=== PATIENT | female | born 1930 | race Caucasian/White ===

== ENCOUNTER 2018-08-15 20:14 | Emergency (ER) | payer MEDICARE ==
[~2018-08-15] VITALS: Ht 154.9 cm; Wt 65.5 kg
[~2018-08-15 20:14] MED LIST: AMLO10TA8 PO; ASPI-515 PO; AZIT500T5 PO; CEFD300C37 PO; DOXA1TAB2 PO; LACT1CAP35 PO; LEVO25TA2 PO; LORA-446 PO; LOSA50TA2 PO; SPIR25TA5 PO
--- NOTE | 2018-08-15 20:26 | NUR ---
2022 STILL IN TRIAGE COULDNT DO XRAY
[2018-08-15 21:32] LABS: ALBUMIN 3.9 g/dL (3.4-5.0); ANION GAP 8 mmol/L (5-15); CALCIUM 9.1 mg/dL (8.5-10.1); CHLORIDE 103 mmol/L (98-107); CREATININE 1.01 mg/dL (0.55-1.02)
[2018-08-15 21:36] LABS: TROPONIN I < 0.015 ng/mL (0.000-0.045)
[2018-08-15 21:42] VITALS: BP 163/86
--- NOTE | 2018-08-15 21:42 | NUR ---
ASSUMED CARE OF PT AT THIS TIME. THIS IS AN 87 YO FEMALE WHO PRESENTS TO THE ER C/O DIZZINESS, NAUSEA AND "JUST FEELING OFF" X 1-2 MONTHS. PT DENIES PAIN OF ANY KIND. PT AO X 4. ANSWERING ALL QUESITONS APPROPRIATELY. PT ABLE TO HILARIO W/O DIFFIUCLTY. 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 PERRLA. PT ON CONT BP, CARDIAC AND O2 MONITORS. 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 CALL LIGHT WITHIN REACH. WILL CONT TO MONITOR PT.
[2018-08-15 21:43] LABS: BASOPHILS # (AUTO) 0.02 x10^3/uL (0-0.1); BASOPHILS % (AUTO) 0 % (0-1); EOSINOPHILS # (AUTO) 0.09 x10^3/uL (0-0.4); EOSINOPHILS % (AUTO) 2 % (1-7); LYMPHOCYTES # (AUTO) 1.74 x10^3/uL (1-3.4); LYMPHOCYTES % (AUTO) 31 % (22-44); MD SCAN; MEAN CORPUSCULAR HEMOGLOBIN 31.8 pg (27.0-34.8); MEAN CORPUSCULAR VOLUME 93.5 fL (80-100); MEAN PLATELET VOLUME 9.2 fL (7.4-10.4); MONOCYTES # (AUTO) 0.52 x10^3/uL (0.2-0.8); MONOCYTES % (AUTO) 9 % (2-9); NEUTROPHILS # (AUTO) 3.26 x10^3/uL (1.8-6.8); NEUTROPHILS % (AUTO) 58 % (42-75); PLATELET COUNT 223 x10^3/uL (130-400); RED BLOOD COUNT 4.29 x10^6/uL (3.82-5.3); RED CELL DISTRIBUTION WIDTH 14.6 % (9.6-15.2)
--- NOTE | 2018-08-15 21:57 | NUR ---
REPORT TO SHAMEKA CAZARES WHO ASSUMED CARE OF PT. PT PROVIDED WITH WATER WITH OKAY BY [facility]. PT AWARE WE NEED URINE SAMPLE.
--- NOTE | 2018-08-15 22:05 | NUR ---
ASSUMED CARE OF PT. PT RESTING IN BED. ENCOURAGED FOR UA AT THIS TIME.
--- NOTE | 2018-08-15 22:57 | NUR ---
PT UNABLE TO PROVIDE UA. PT GIVEN HEATER FOR COMFORT.
--- NOTE | 2018-08-15 23:18 | NUR ---
Patient/Caregiver given discharge instructions and they have confirmed that they understand the instructions. Patient ambulatory with steady gait.
== END 2018-08-15 23:49 | disposition home or self-care (01) ==
LOC: ED 22:19
DX: R42 Dizziness and giddiness (principal); I10 Essential (primary) hypertension
CPT/HCPCS: 36415; 71046; 80048; 82040; 84484; 85025; 93005; 99284

== ENCOUNTER 2019-09-13 19:10 | Observation (INO) | payer MEDICARE ==
[~2019-09-13] VITALS: Ht 154.9 cm; Wt 66.1 kg
[~2019-09-13 19:10] MED LIST changes: +AZIT500T10 PO; -AZIT500T5 PO; +FURO20TA3 PO; +LEVO50TA PO; +NIAC-17 PO; +OMEP-110 PO; +POTA10CA PO; +SIMV10TA PO
[2019-09-13] MEDS ORDERED: PANTOPRAZOLE 40 MG IV IVPush ONE (20:00)
[2019-09-13] MEDS ORDERED: SODIUM CHLORIDE FLUSH 10ML SYR IVF ONE (20:00)
[2019-09-13] MEDS ORDERED: SODIUM CHLORIDE 0.9% 1,000ML IVBOLUS ONE (20:00)
[2019-09-13] MEDS ORDERED: PANTOPRAZOLE 40 MG IV ONE (20:08)
--- NOTE | 2019-09-13 20:19 | NUR ---
Patient BIB [facility] c/o dark rectal bleeding x3 days; +diarrhea; denies N/V; general malaise, weakness. Patient denies abd pain. Patient is in NAD. Respirations even and unlabored.
[2019-09-13 20:28] LABS: INTERNATIONAL NORMALIZED RATIO 1.03 (0.93-1.1); PROTHROMBIN TIME 10.9 Seconds (9.6-11.5)
[2019-09-13 20:29] LABS: BASOPHILS # (AUTO) 0.02 x10^3/uL (0-0.1); BASOPHILS % (AUTO) 0 % (0-1); EOSINOPHILS % (AUTO) 2 % (1-7); LYMPHOCYTES # (AUTO) 1.67 x10^3/uL (1-3.4); LYMPHOCYTES % (AUTO) 27 % (22-44); MD NO; MEAN CORPUSCULAR HEMOGLOBIN 31.5 pg (27.0-34.8); MEAN CORPUSCULAR HGB CONC 33.2 g/dL (32.4-35.8); MEAN PLATELET VOLUME 8.7 fL (7.4-10.4); MONOCYTES # (AUTO) 0.77 x10^3/uL (0.2-0.8); MONOCYTES % (AUTO) 13 % (2-9); NEUTROPHILS # (AUTO) 3.56 x10^3/uL (1.8-6.8); NEUTROPHILS % (AUTO) 58 % (42-75); PLATELET COUNT 235 x10^3/uL (130-400); RED BLOOD COUNT 3.98 x10^6/uL (3.82-5.3); RED CELL DISTRIBUTION WIDTH 14.1 % (9.6-15.2)
[2019-09-13 20:30] LABS: ALANINE AMINOTRANSFERASE 23 U/L (12-78); ALBUMIN 3.3 g/dL (3.4-5.0); ANION GAP 4 mmol/L (5-15); CALCIUM 8.8 mg/dL (8.5-10.1); CHLORIDE 103 mmol/L (98-107); CREATININE 1.05 mg/dL (0.55-1.02)
[2019-09-13 20:32] LABS: ALKALINE PHOSPHATASE 49 U/L (45-117); BILIRUBIN,TOTAL 0.2 mg/dL (0.2-1.0); TOTAL PROTEIN 6.5 g/dL (6.4-8.2)
--- NOTE | 2019-09-13 21:54 | NUR ---
Report given to SHAMEKA Munguia. Patient to be transferred to room 377.
[2019-09-13 22:28] VITALS: BP 120/75
[2019-09-14 01:16] VITALS: BP 113/66
[2019-09-14] MEDS: LEVOTHYROXINE 50 MCG TABLET PO SCH (06:23)
[2019-09-14] MEDS ORDERED: PANTOPRAZOLE 40 MG IV IVPush SCH (07:30)
[2019-09-14 08:11] VITALS: BP 114/67
[2019-09-14 08:42] LABS: BASOPHILS # (AUTO) 0.02 x10^3/uL (0-0.1); BASOPHILS % (AUTO) 0 % (0-1); EOSINOPHILS # (AUTO) 0.17 x10^3/uL (0-0.4); EOSINOPHILS % (AUTO) 3 % (1-7); LYMPHOCYTES # (AUTO) 1.84 x10^3/uL (1-3.4); LYMPHOCYTES % (AUTO) 35 % (22-44); MD NO; MEAN CORPUSCULAR HEMOGLOBIN 31.2 pg (27.0-34.8); MEAN CORPUSCULAR HGB CONC 32.7 g/dL (32.4-35.8); MEAN CORPUSCULAR VOLUME 95.6 fL (80-100); MEAN PLATELET VOLUME 8.5 fL (7.4-10.4); MONOCYTES # (AUTO) 0.61 x10^3/uL (0.2-0.8); MONOCYTES % (AUTO) 12 % (2-9); NEUTROPHILS # (AUTO) 2.64 x10^3/uL (1.8-6.8); NEUTROPHILS % (AUTO) 50 % (42-75); PLATELET COUNT 216 x10^3/uL (130-400); RED BLOOD COUNT 3.91 x10^6/uL (3.82-5.3); RED CELL DISTRIBUTION WIDTH 13.6 % (9.6-15.2)
[2019-09-14] MEDS: NIACIN 500 MG TABLET.ER PO SCH (08:42)
[2019-09-14] MEDS: SPIRONOLACTONE 25 MG TABLET PO SCH (08:42)
[2019-09-14] MEDS: LOSARTAN 50MG TABLET PO SCH (08:42)
[2019-09-14 08:51] LABS: ANION GAP 6 mmol/L (5-15); CALCIUM 8.5 mg/dL (8.5-10.1); CHLORIDE 106 mmol/L (98-107); CREATININE 0.88 mg/dL (0.55-1.02)
[2019-09-14] MEDS ORDERED: CHLORHEXIDINE 15 ML UDC MM STA (14:15)
[2019-09-14] MEDS ORDERED: FENTANYL PF 100 MCG/2ML ONE (14:48)
[2019-09-14] MEDS ORDERED: PROPOFOL 10 MG/ML, 20ML ONE (15:00)
[2019-09-14] MEDS ORDERED: ROCURONIUM 10MG/ML,5ML ONE (15:00)
[2019-09-14] MEDS ORDERED: PROMETHAZINE 25 MG SUPP PR PRN (15:00)
[2019-09-14] MEDS ORDERED: CEFAZOLIN 1,000 MG ONE (15:00)
[2019-09-14] MEDS ORDERED: NEOSTIGMINE 1 MG/ML, 10ML ONE (15:00)
[2019-09-14] MEDS ORDERED: OXYcodone 5 MG/5 ML ORAL.SOL UDC PO PRN (15:00)
[2019-09-14] MEDS ORDERED: DEXAMETHASONE 4 MG/ML, 1ML ONE (15:00)
[2019-09-14] MEDS ORDERED: ACETAMINOPHEN 325 MG TABLET PO PRN (15:00)
[2019-09-14] MEDS ORDERED: SUCCINYLCHOLINE 20 MG/ML, 10ML ONE (15:00)
[2019-09-14] MEDS ORDERED: GLYCOPYRROLATE 0.2MG/1ML, 5ML ONE (15:00)
[2019-09-14] MEDS ORDERED: FENTANYL PF 100 MCG/2ML IV PRN (15:00)
[2019-09-14] MEDS ORDERED: ONDANSETRON ODT 8 MG PO PRN (15:00)
[2019-09-14] MEDS ORDERED: PROMETHAZINE 25 MG/ML, 1ML IV PRN (15:00)
[2019-09-14] MEDS ORDERED: ONDANSETRON 2MG/ML, 2ML IV PRN (15:00)
[2019-09-14] MEDS ORDERED: ONDANSETRON 2MG/ML, 2ML ONE (15:00)
[2019-09-14] MEDS ORDERED: hydrALAzine 20 MG/ML, 1ML IV PRN (16:00)
[2019-09-14] MEDS ORDERED: [UNRECOGNIZED DRUG - REMARK] MC PRN (16:30)
[2019-09-14 19:07] VITALS: BP 124/66
[2019-09-14 23:27] LABS: CLOSTRIDIUM DIFFICILE ANTIGEN NEGATIVE; CLOSTRIDIUM DIFFICILE TOXIN NEGATIVE (Negative)
[2019-09-15 02:12] VITALS: BP 132/64
[2019-09-15 06:03] LABS: BASOPHILS # (AUTO) 0.02 x10^3/uL (0-0.1); BASOPHILS % (AUTO) 0 % (0-1); EOSINOPHILS # (AUTO) 0.18 x10^3/uL (0-0.4); EOSINOPHILS % (AUTO) 3 % (1-7); LYMPHOCYTES % (AUTO) 34 % (22-44); MD NO; MEAN CORPUSCULAR HEMOGLOBIN 31.3 pg (27.0-34.8); MEAN CORPUSCULAR HGB CONC 33.1 g/dL (32.4-35.8); MEAN CORPUSCULAR VOLUME 94.7 fL (80-100); MEAN PLATELET VOLUME 8.6 fL (7.4-10.4); MONOCYTES # (AUTO) 0.69 x10^3/uL (0.2-0.8); MONOCYTES % (AUTO) 12 % (2-9); NEUTROPHILS # (AUTO) 2.87 x10^3/uL (1.8-6.8); NEUTROPHILS % (AUTO) 51 % (42-75); PLATELET COUNT 224 x10^3/uL (130-400); RED BLOOD COUNT 3.77 x10^6/uL (3.82-5.3); RED CELL DISTRIBUTION WIDTH 14.1 % (9.6-15.2)
[2019-09-15 06:09] LABS: ALBUMIN 2.9 g/dL (3.4-5.0); ANION GAP 5 mmol/L (5-15); CALCIUM 8.6 mg/dL (8.5-10.1); CHLORIDE 108 mmol/L (98-107)
[2019-09-15] MEDS: LEVOTHYROXINE 50 MCG TABLET PO SCH (06:09)
[2019-09-15 06:14] LABS: ALANINE AMINOTRANSFERASE 19 U/L (12-78); ALKALINE PHOSPHATASE 42 U/L (45-117); BILIRUBIN,TOTAL 0.4 mg/dL (0.2-1.0); CREATININE 0.83 mg/dL (0.55-1.02); TOTAL PROTEIN 5.9 g/dL (6.4-8.2)
[2019-09-15] MEDS ORDERED: OMEPRAZOLE 20 MG CAPSULE.DR PO SCH (07:30)
[2019-09-15 08:28] VITALS: BP 143/75
[2019-09-15] MEDS: SPIRONOLACTONE 25 MG TABLET PO SCH (09:31)
[2019-09-15] MEDS: LOSARTAN 50MG TABLET PO SCH (09:31)
[2019-09-15] MEDS: NIACIN 500 MG TABLET.ER PO SCH (09:32)
[2019-09-15] MEDS ORDERED: OMEP-110 PO (10:45)
[2019-09-15 12:30] VITALS: BP 129/71
== END 2019-09-15 13:09 | disposition home or self-care (01) ==
LOC: ED 19:56 → EDIP 20:36 → INTOOBSV 20:36 → 3N 21:37
PROVIDERS: ADMIT Family Medicine; ATTEND Family Medicine
DX: K92.1 Melena (principal); K27.4 Chronic or unspecified peptic ulcer, site unspecified, with hemorrhage; I10 Essential (primary) hypertension; E03.9 Hypothyroidism, unspecified; E78.5 Hyperlipidemia, unspecified; G89.29 Other chronic pain; D64.9 Anemia, unspecified; Z79.82 Long term (current) use of aspirin; Z86.73 Personal history of transient ischemic attack (TIA), and cerebral infarction without residual deficits
CPT/HCPCS: 36415; 43239; 80048; 80053; 83605; 85025; 85610; 85730; 87324; 88305; 93005; 96374; 96376; 99285; C9113; G0378; J0330; J0690; J1100; J2405; J2704; J2710; J3010; J7030

== ENCOUNTER 2019-12-23 18:14 | Inpatient (IN) | payer MEDICARE ==
[~2019-12-23] VITALS: Ht 157.5 cm; Wt 89.3 kg
[2019-12-23] MEDS ORDERED: SODIUM CHLORIDE 0.9% 1,000 ML IV ONE (18:20)
[2019-12-23] MEDS ORDERED: PLEASE ENTER HEIGHT AND WEIGHT MC SCH ×2 (18:30→19:00)
[2019-12-23] MEDS ORDERED: ASPIRIN 81 MG TABLET CHEW PO ONE (18:30)
[2019-12-23] MEDS ORDERED: SODIUM CHLORIDE FLUSH 10ML SYR IVF ONE (18:30)
--- NOTE | 2019-12-23 18:43 | NUR ---
upon returning from restroom pt hr to be found in the 200" pt directed to bear down and pt was able to vagal down into a sinus rhythm
[2019-12-23 18:49] LABS: ALANINE AMINOTRANSFERASE 30 U/L (12-78); ALBUMIN 3.6 g/dL (3.4-5.0); ANION GAP 8 mmol/L (5-15); CALCIUM 8.4 mg/dL (8.5-10.1); CHLORIDE 102 mmol/L (98-107); CREATININE 0.98 mg/dL (0.55-1.02)
[2019-12-23 18:52] LABS: BASOPHILS # (AUTO) 0.02 x10^3/uL (0-0.1); BASOPHILS % (AUTO) 0 % (0-1); EOSINOPHILS # (AUTO) 0.08 x10^3/uL (0-0.4); EOSINOPHILS % (AUTO) 1 % (1-7); LYMPHOCYTES # (AUTO) 1.93 x10^3/uL (1-3.4); LYMPHOCYTES % (AUTO) 31 % (22-44); MD NO; MEAN CORPUSCULAR HEMOGLOBIN 30.6 pg (27.0-34.8); MEAN CORPUSCULAR HGB CONC 32.1 g/dL (32.4-35.8); MEAN CORPUSCULAR VOLUME 95.3 fL (80-100); MEAN PLATELET VOLUME 8.2 fL (7.4-10.4); MONOCYTES % (AUTO) 11 % (2-9); NEUTROPHILS # (AUTO) 3.56 x10^3/uL (1.8-6.8); NEUTROPHILS % (AUTO) 57 % (42-75); PLATELET COUNT 244 x10^3/uL (130-400); RED BLOOD COUNT 4.46 x10^6/uL (3.82-5.3); RED CELL DISTRIBUTION WIDTH 14.4 % (9.6-15.2)
[2019-12-23 18:54] LABS: ALKALINE PHOSPHATASE 52 U/L (45-117); BILIRUBIN,TOTAL 0.3 mg/dL (0.2-1.0); T4 (THYROXINE) 9.1 mcg/dL (4.8-13.9); TOTAL PROTEIN 6.8 g/dL (6.4-8.2); TROPONIN I < 0.015 ng/mL (0.000-0.045)
[2019-12-23 19:00] LABS: MICROSCOPIC AUTO
[2019-12-23] MEDS ORDERED: ASPIRIN 81 MG TABLET CHEW ONE (19:02)
[2019-12-23] MEDS ORDERED: METOPROLOL 1 MG/ML, 5ML ONE (19:14)
--- NOTE | 2019-12-23 19:17 | NUR ---
monitor check to room. pt hr 170. pt placed on crash cart andf made aware. verbal order recieved by dr carballo for 5 mg of metoprolol. medication given at 1915
--- NOTE | 2019-12-23 19:22 | NUR ---
vagal maneuvers unsuccessful this time.
--- NOTE | 2019-12-23 19:29 | NUR ---
hr 142 at this time bp 93/52. ns set to open at this time. [facility].
[2019-12-23] MEDS ORDERED: METOPROLOL 1 MG/ML, 5ML IVPush ONE ×2 (19:30)
--- NOTE | 2019-12-23 19:31 | NUR ---
at this time pt states cp has subsided.
--- NOTE | 2019-12-23 19:37 | NUR ---
called ct. 5 to 10 minutes out.
[2019-12-23] MEDS ORDERED: PROPOFOL 10 MG/ML, 20ML ONE (20:34)
--- NOTE | 2019-12-23 20:41 | NUR ---
see sedation packet for vitals
--- NOTE | 2019-12-23 21:01 | NUR ---
summary of events. sedation began total of 70 mg of propofol given and cardioversion occured. pt returned to sinus rhythm. 2nd liter of ns initiated for hypotension. pt became apneic and need bvm ventolations for estimated 2 minutes. roughly 5 minutes post cardioversion pt returned to svt md made aware. md back in room 50 mg of propofol given and 2nd cardioversion occured. pt returned to sinus rhythm and remains hypotensive. pt placed in trendelenberg. pt remains hypotensive.
--- NOTE | 2019-12-23 21:09 | NUR ---
3rd liter ns initiated for hypotension
--- NOTE | 2019-12-23 21:50 | NUR ---
PT IS AXOX4 AT THSI TIME. VSS. DR CALVERT AT BEDSIDE. AT THSI TIME DR CALVERT STATES PT IS APPROPRIATE FOR TELE
--- NOTE | 2019-12-23 22:08 | NUR ---
70 MG PROPOFOL WASTED WITH NIRMALA MYLES
[2019-12-23] MEDS ORDERED: FUROSEMIDE 20 MG/2 ML IV ONE (22:30)
[2019-12-23] MEDS ORDERED: PROMETHAZINE 25 MG/ML, 1ML IM PRN (22:30)
[2019-12-23] MEDS ORDERED: LABETALOL 5MG/ML, 20ML IVPush PRN (22:30)
[2019-12-23] MEDS ORDERED: ACETAMINOPHEN 325 MG TABLET PO PRN (22:30)
[2019-12-23] MEDS ORDERED: morphine SULFATE 10 MG/ML, 1ML IVPush PRN (22:30)
[2019-12-23] MEDS ORDERED: ASPI-496 PO (22:39)
[2019-12-23 22:45] VITALS: BP 95/57
[2019-12-23] MEDS ORDERED: CALCIUM GLUCONATE 4.6 MEQ in SODIUM CHLORIDE 0.9% 50 ML IV ONE (23:00)
[2019-12-23] MEDS ORDERED: OMNIPAQUE 350 MG/ML, 100ML BOTTLE ONE (23:40)
[2019-12-24 00:18] VITALS: BP 120/69
[2019-12-24 05:03] LABS: BASOPHILS # (AUTO) 0.03 x10^3/uL (0-0.1); BASOPHILS % (AUTO) 1 % (0-1); EOSINOPHILS # (AUTO) 0.15 x10^3/uL (0-0.4); EOSINOPHILS % (AUTO) 3 % (1-7); LYMPHOCYTES # (AUTO) 2.38 x10^3/uL (1-3.4); LYMPHOCYTES % (AUTO) 41 % (22-44); MD NO; MEAN CORPUSCULAR HEMOGLOBIN 30.6 pg (27.0-34.8); MEAN CORPUSCULAR HGB CONC 32.4 g/dL (32.4-35.8); MEAN CORPUSCULAR VOLUME 94.4 fL (80-100); MEAN PLATELET VOLUME 8.6 fL (7.4-10.4); MONOCYTES # (AUTO) 0.68 x10^3/uL (0.2-0.8); MONOCYTES % (AUTO) 12 % (2-9); NEUTROPHILS # (AUTO) 2.61 x10^3/uL (1.8-6.8); NEUTROPHILS % (AUTO) 45 % (42-75); PLATELET COUNT 211 x10^3/uL (130-400); RED CELL DISTRIBUTION WIDTH 14.7 % (9.6-15.2)
[2019-12-24 05:07] LABS: ANION GAP 4 mmol/L (5-15); CALCIUM 8.4 mg/dL (8.5-10.1); CHLORIDE 107 mmol/L (98-107); CREATININE 0.78 mg/dL (0.55-1.02)
[2019-12-24] MEDS ORDERED: LEVOTHYROXINE 50 MCG TABLET PO SCH (06:00)
[2019-12-24] MEDS ORDERED: ASPIRIN 325 MG TABLET EC PO SCH (06:00)
[2019-12-24] MEDS: OMEPRAZOLE 20 MG CAPSULE.DR PO SCH ×2 (06:36→16:30)
[2019-12-24 07:10] VITALS: BP 139/75
[2019-12-24] MEDS ORDERED: LORazepam 1MG TABLET PO SCH (09:00)
[2019-12-24] MEDS ORDERED: SPIRONOLACTONE 25 MG TABLET PO SCH (09:00)
[2019-12-24] MEDS ORDERED: DILTIAZEM 120 MG CAP.ER.24H PO SCH (09:00)
[2019-12-24] MEDS ORDERED: NIACIN 500 MG TABLET.ER PO SCH (09:00)
[2019-12-24 09:09] LABS: TROPONIN I 0.377 ng/mL (0.000-0.045)
[2019-12-24] MEDS ORDERED: NITROGLYCERIN 0.4 MG/SPRAY SL PRN (10:30)
[2019-12-24] MEDS ORDERED: NITROGLYCERIN 0.4 MG BOTTLE (25 TABS) SL PRN (10:30)
[2019-12-24 10:50] LABS: TROPONIN I 0.295 ng/mL (0.000-0.045)
[2019-12-24 12:10] VITALS: BP 105/61
[2019-12-24] MEDS ORDERED: DILT120C48 PO (15:52)
== END 2019-12-24 17:35 | disposition home health service (06) | DRG 309 ==
LOC: ED 20:57 → EDIP 22:24 → 5SO 22:37
PROVIDERS: ADMIT Family Medicine; ATTEND Family Medicine
PROC: 5A2204Z Restoration of Cardiac Rhythm, Single (ICD-10-PCS; principal; 2019-12-23)
DX: I47.1 Supraventricular tachycardia (principal); E87.1 Hypo-osmolality and hyponatremia; I50.32 Chronic diastolic (congestive) heart failure; E03.9 Hypothyroidism, unspecified; E78.5 Hyperlipidemia, unspecified; E83.51 Hypocalcemia; E86.0 Dehydration; F32.9 Major depressive disorder, single episode, unspecified; F41.9 Anxiety disorder, unspecified; I25.10 Atherosclerotic heart disease of native coronary artery without angina pectoris; I34.0 Nonrheumatic mitral (valve) insufficiency; I95.9 Hypotension, unspecified; Z60.2 Problems related to living alone; G47.30 Sleep apnea, unspecified; I11.0 Hypertensive heart disease with heart failure; R03.0 Elevated blood-pressure reading, without diagnosis of hypertension; K21.9 Gastro-esophageal reflux disease without esophagitis; M81.0 Age-related osteoporosis without current pathological fracture; Z66 Do not resuscitate; Z79.899 Other long term (current) drug therapy; Z82.49 Family history of ischemic heart disease and other diseases of the circulatory system; Z86.73 Personal history of transient ischemic attack (TIA), and cerebral infarction without residual deficits; Z87.11 Personal history of peptic ulcer disease; Z79.82 Long term (current) use of aspirin
CPT/HCPCS: 36415; 71045; 71275; 80048; 80053; 81001; 83735; 83880; 84100; 84436; 84443; 84484; 85025; 87086; 93005; 93306; 93356; G0378; J0610; Q9967; J1940; J7030

== ENCOUNTER 2020-02-20 14:52 | Emergency (ER) | payer MEDICARE ==
[~2020-02-20] VITALS: Ht 160 cm; Wt 66.1 kg
[~2020-02-20 14:52] MED LIST changes: +ASPI-496 PO; +DILT120C48 PO
[2020-02-20] MEDS ORDERED: ASPIRIN 81 MG TABLET CHEW ONE (15:18)
--- NOTE | 2020-02-20 15:26 | NUR ---
KING MARQUES AT BS NOW.
[2020-02-20 15:28] LABS: BASOPHILS % (AUTO) 0 % (0-1); EOSINOPHILS % (AUTO) 2 % (1-7); LYMPHOCYTES % (AUTO) 38 % (22-44); MEAN CORPUSCULAR HEMOGLOBIN 31.1 pg (27.0-34.8); MEAN CORPUSCULAR HGB CONC 32.7 g/dL (32.4-35.8); MEAN PLATELET VOLUME 8.7 fL (7.4-10.4); MONOCYTES % (AUTO) 11 % (2-9); NEUTROPHILS % (AUTO) 49 % (42-75); PLATELET COUNT 226 x10^3/uL (130-400); RED BLOOD COUNT 4.42 x10^6/uL (3.82-5.3); RED CELL DISTRIBUTION WIDTH 14.8 % (9.6-15.2)
[2020-02-20] MEDS ORDERED: ASPIRIN 81 MG TABLET CHEW PO ONE (15:30)
[2020-02-20 15:36] LABS: MD NO
[2020-02-20 15:39] LABS: ALANINE AMINOTRANSFERASE 27 U/L (12-78); ALBUMIN 3.8 g/dL (3.4-5.0); ANION GAP 7 mmol/L (5-15); CALCIUM 9.1 mg/dL (8.5-10.1); CHLORIDE 100 mmol/L (98-107); CREATININE 1.02 mg/dL (0.55-1.02)
[2020-02-20 15:43] LABS: ALKALINE PHOSPHATASE 56 U/L (45-117); BILIRUBIN,TOTAL 0.4 mg/dL (0.2-1.0); TOTAL PROTEIN 7.2 g/dL (6.4-8.2); TROPONIN I < 0.015 ng/mL (0.000-0.045)
--- NOTE | 2020-02-20 16:34 | NUR ---
PT DOING FINE, SITTING UP IN GURNEY. BP IMPROVED. PT STATES SHE DOESN'T FEEL SOB [place] WHILE LYING IN GURNEY. CHART UP FOR RECHECK.
[2020-02-20 17:07] VITALS: BP 135/62
--- NOTE | 2020-02-20 17:08 | NUR ---
D/C INSTRUCTIONS & F/U APPT RV'WD WITH PT, SHE VERBALIZES UNDERSTANDING. INSTRUCTED PT TO RETURN TO ED FOR ANY WORSENING OR CONCERNING SYMPTOMS. PT AMBULATED OUT OF ED WITH FRIEND WHO WILL DRIVE HER HOME.
== END 2020-02-20 17:27 | disposition home or self-care (01) ==
LOC: ED 17:10
DX: R07.89 Other chest pain (principal); R94.31 Abnormal electrocardiogram [ECG] [EKG]; I48.91 Unspecified atrial fibrillation; I10 Essential (primary) hypertension; E78.5 Hyperlipidemia, unspecified; Z86.73 Personal history of transient ischemic attack (TIA), and cerebral infarction without residual deficits
CPT/HCPCS: 36415; 71045; 80053; 83880; 84484; 85025; 93005; 99285

== ENCOUNTER 2020-04-02 14:25 | Emergency (ER) | payer MEDICARE, OTHER ==
[~2020-04-02] VITALS: Ht 157.5 cm; Wt 61.3 kg
[~2020-04-02 14:25] MED LIST changes: +AMLO-211 PO; -AMLO10TA8 PO
--- NOTE | 2020-04-02 14:35 | NUR ---
pt BIB [facility] from home with multiple c/o. pt c/o chest pressure with SOB, intermittent nausea, diarrhea this AM, generalized weakness and feeling ill. pt is moaning. no resp. distress. 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
--- NOTE | 2020-04-02 14:40 | NUR ---
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 pt denies recent sick contacts
--- NOTE | 2020-04-02 14:49 | NUR ---
Abiodun MARQUES at bedside for eval
--- NOTE | 2020-04-02 14:57 | NUR ---
lab at bedside to draw
[2020-04-02] MEDS ORDERED: SODIUM CHLORIDE FLUSH 10ML SYR IVF ONE (15:00)
[2020-04-02 15:30] LABS: BASOPHILS % (AUTO) 0 % (0-1); EOSINOPHILS % (AUTO) 1 % (1-7); LYMPHOCYTES % (AUTO) 33 % (22-44); MEAN CORPUSCULAR HEMOGLOBIN 31.6 pg (27.0-34.8); MEAN CORPUSCULAR HGB CONC 33.8 g/dL (32.4-35.8); MEAN PLATELET VOLUME 8.9 fL (7.4-10.4); MONOCYTES % (AUTO) 11 % (2-9); NEUTROPHILS % (AUTO) 55 % (42-75); PLATELET COUNT 208 x10^3/uL (130-400); RED CELL DISTRIBUTION WIDTH 14.2 % (9.6-15.2)
--- NOTE | 2020-04-02 15:30 | NUR ---
no changes. pt sitting up on gurney in no apparent distress. no new c/o. pt has had no diarrhea
[2020-04-02 15:31] LABS: MD NO
[2020-04-02 15:46] LABS: ALANINE AMINOTRANSFERASE 21 U/L (12-78); ALBUMIN 3.2 g/dL (3.4-5.0); ALKALINE PHOSPHATASE 50 U/L (45-117); ANION GAP 5 mmol/L (5-15); BILIRUBIN,TOTAL 0.3 mg/dL (0.2-1.0); CHLORIDE 105 mmol/L (98-107); TOTAL PROTEIN 6.1 g/dL (6.4-8.2)
[2020-04-02 15:47] LABS: TROPONIN I < 0.015 ng/mL (0.000-0.045)
--- NOTE | 2020-04-02 16:37 | NUR ---
Dr Pringle has been to bedside for recheck
--- NOTE | 2020-04-02 16:43 | NUR ---
pt was able to get up without assist and walk around her room twice. pt states that she is walking baseline for her
[2020-04-02 17:17] VITALS: BP 153/61
== END 2020-04-02 17:21 | disposition home or self-care (01) ==
LOC: MERGE 15:55 → ED 15:55
DX: R07.89 Other chest pain (principal); R11.0 Nausea; R94.31 Abnormal electrocardiogram [ECG] [EKG]; I11.9 Hypertensive heart disease without heart failure
CPT/HCPCS: 36415; 71045; 80053; 83880; 84439; 84443; 84484; 85025; 93005; 99285

== ENCOUNTER 2020-06-12 15:58 | Emergency (ER) | payer MEDICARE, OTHER ==
[~2020-06-12] VITALS: Ht 157.5 cm; Wt 67.2 kg
--- NOTE | 2020-06-12 16:58 | NUR ---
PT TO ROOM 13 W/ C/O WORRYING SHE HAD A STROKE. STATES SHE AWOKE LIKE NORMAL AT 0745. PT FELT FINE WENT AND WENT TO STAND AND NOTICED INCREASED WEAKNESS TO BILAT LEGS AT 1000. STATES "MY LEGS WERE WOBBLY WHEN I WALKED EARLY THIS MORNING AND IT GOT BETTER" PT STATES IT GOE BETTER A FEW HOURS AFTER AT 1530. 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 PT RESTING ON GURNEY. NADN. MONITORS APPLIED. WARM BLANKET PROVIDED. VSS.
[2020-06-12 17:11] VITALS: BP 165/71
[2020-06-12 17:22] LABS: ALBUMIN 3.5 g/dL (3.4-5.0); ANION GAP 4 mmol/L (5-15); CALCIUM 8.7 mg/dL (8.5-10.1); CHLORIDE 102 mmol/L (98-107); CREATININE 0.92 mg/dL (0.55-1.02)
[2020-06-12 17:24] LABS: BASOPHILS % (AUTO) 0 % (0-1); EOSINOPHILS % (AUTO) 2 % (1-7); LYMPHOCYTES % (AUTO) 39 % (22-44); MEAN CORPUSCULAR HEMOGLOBIN 32.1 pg (27.0-34.8); MEAN PLATELET VOLUME 8.4 fL (7.4-10.4); MONOCYTES % (AUTO) 13 % (2-9); NEUTROPHILS % (AUTO) 46 % (42-75); PLATELET COUNT 219 x10^3/uL (130-400); RED BLOOD COUNT 3.95 x10^6/uL (3.82-5.3); RED CELL DISTRIBUTION WIDTH 13.6 % (9.6-15.2)
[2020-06-12 17:26] LABS: MD NO; TROPONIN I < 0.015 ng/mL (0.000-0.045)
--- NOTE | 2020-06-12 17:45 | NUR ---
SPOKE W/ ERP DR. POE IN REGARDS TO PT'S SX. PER ERP NO NEED FOR CT AT THIS TIME AND WILL BE DC'D IF ALL LABWORK LOOKS WNL. ERP DR. POE AT BEDSIDE FOR RE-EVAL.
== END 2020-06-12 18:31 | disposition home or self-care (01) ==
LOC: ED 16:26
DX: R07.89 Other chest pain (principal); R41.0 Disorientation, unspecified; I10 Essential (primary) hypertension; E78.5 Hyperlipidemia, unspecified; Z86.73 Personal history of transient ischemic attack (TIA), and cerebral infarction without residual deficits
CPT/HCPCS: 36415; 80048; 82040; 84484; 85025; 93005; 99284

== ENCOUNTER 2020-07-04 20:04 | Emergency (ER) | payer MEDICARE, OTHER ==
[~2020-07-04] VITALS: Ht 158.8 cm; Wt 67.7 kg
[~2020-07-04 20:04] MED LIST changes: -ASPI-515 PO; +ASPI-963 PO
--- NOTE | 2020-07-04 20:31 | NUR ---
Patient presents to ER c/o CP, SOB, and dizziness since this am. Patient has a recent dx of afib at the end of May. Patient takes (3) baby ASA everyday which she took today. Patient denies N/V. Patient is in NAD. REspirations even and unlabored.
[2020-07-04 21:11] LABS: BASOPHILS % (AUTO) 1 % (0-1); EOSINOPHILS % (AUTO) 4 % (1-7); LYMPHOCYTES % (AUTO) 38 % (22-44); MEAN CORPUSCULAR HEMOGLOBIN 32.4 pg (27.0-34.8); MEAN CORPUSCULAR HGB CONC 34.6 g/dL (32.4-35.8); MEAN PLATELET VOLUME 8.5 fL (7.4-10.4); MONOCYTES % (AUTO) 11 % (2-9); NEUTROPHILS % (AUTO) 47 % (42-75); PLATELET COUNT 206 x10^3/uL (130-400); RED BLOOD COUNT 4.13 x10^6/uL (3.82-5.3); RED CELL DISTRIBUTION WIDTH 13.8 % (9.6-15.2)
[2020-07-04 21:19] LABS: ALBUMIN 3.7 g/dL (3.4-5.0); ANION GAP 8 mmol/L (5-15); CALCIUM 8.9 mg/dL (8.5-10.1); CHLORIDE 103 mmol/L (98-107); CREATININE 1.05 mg/dL (0.55-1.02); MD NO
[2020-07-04 21:22] LABS: TROPONIN I < 0.015 ng/mL (0.000-0.045)
[2020-07-04 22:16] VITALS: BP 152/63
--- NOTE | 2020-07-04 22:17 | NUR ---
Discharge instructions given. All questions and concerns addressed. Patient ambulatory with a steady gait. Belongings with patient.
== END 2020-07-04 22:18 | disposition home or self-care (01) ==
LOC: ED 21:06
DX: R07.89 Other chest pain (principal); R06.00 Dyspnea, unspecified; R11.0 Nausea; R06.02 Shortness of breath; I10 Essential (primary) hypertension; E78.5 Hyperlipidemia, unspecified; R94.31 Abnormal electrocardiogram [ECG] [EKG]; Z86.73 Personal history of transient ischemic attack (TIA), and cerebral infarction without residual deficits
CPT/HCPCS: 36415; 71045; 80048; 82040; 84484; 85025; 93005; 99285

== ENCOUNTER 2020-09-19 04:43 | Emergency (ER) | payer MEDICARE, OTHER ==
[~2020-09-19] VITALS: Ht 157.5 cm; Wt 62.2 kg
--- NOTE | 2020-09-19 04:43 | NUR ---
INITIAL PT CONTACT. BIBA C/O PALPITATIONS THAT BEGAN CASE MGR. PER EMS, UPON ARRIVAL PT WAS NOTED TO BE IN SVT AT A RATE OF 190 C/O CHEST PAIN, EMS WAS LEAVING THE PT'S HOUSE, PT CONVERTED SPONTANEOUSLY TO NORMAL SINUS RHYTHM. ONCE PT CONVERTED PT REPORTS "ALMOST TOTAL RELIEF OF CHEST PAIN. I AM JUST A LITTLE DIZZY NOW". PT PLACED ON CONTINUOUS PULSE OX AND CARDIAC MONITORING UPON ARRIVAL. EKG COMPLETED. PT PROVIDED WARM BLANKETS. PT DENIES ANY ADDITIONAL NEEDS AT THIS TIME. AWAITING ERP.
[2020-09-19] MEDS ORDERED: ASPIRIN 81 MG TABLET CHEW ONE (05:19)
[2020-09-19] MEDS ORDERED: ASPIRIN 81 MG TABLET CHEW PO ONE (05:30)
[2020-09-19] MEDS ORDERED: SODIUM CHLORIDE FLUSH 10ML SYR IVF ONE (05:30)
--- NOTE | 2020-09-19 05:32 | NUR ---
xray at bedside
[2020-09-19 05:41] LABS: BASOPHILS % (AUTO) 1 % (0-1); EOSINOPHILS % (AUTO) 4 % (1-7); LYMPHOCYTES % (AUTO) 35 % (22-44); MEAN CORPUSCULAR HGB CONC 33.7 g/dL (32.4-35.8); MEAN PLATELET VOLUME 8.5 fL (7.4-10.4); MONOCYTES % (AUTO) 12 % (2-9); NEUTROPHILS % (AUTO) 49 % (42-75); PLATELET COUNT 228 x10^3/uL (130-400); RED CELL DISTRIBUTION WIDTH 13.9 % (9.6-15.2)
[2020-09-19 05:43] LABS: ALANINE AMINOTRANSFERASE 23 U/L (12-78); ALBUMIN 3.1 g/dL (3.4-5.0); ANION GAP 7 mmol/L (5-15); CALCIUM 8.5 mg/dL (8.5-10.1); CHLORIDE 105 mmol/L (98-107); CREATININE 0.94 mg/dL (0.55-1.02)
[2020-09-19 05:48] LABS: MD NO
[2020-09-19 05:53] LABS: ALKALINE PHOSPHATASE 47 U/L (45-117); BILIRUBIN,TOTAL 0.3 mg/dL (0.2-1.0); TOTAL PROTEIN 5.9 g/dL (6.4-8.2); TROPONIN I < 0.015 ng/mL (0.000-0.045)
--- NOTE | 2020-09-19 06:02 | NUR ---
PURE WICK PLACED PER PT REQUEST. PT DENIES ANY ADDITIONAL NEEDS AT THIS TIME. CALL LIGHT AND PERSONAL BELONGINGS WITHIN REACH. FRIEND AT BEDSIDE.
[2020-09-19 06:16] LABS: MICROSCOPIC NOT IND
--- NOTE | 2020-09-19 06:47 | NUR ---
REPORT TO OLINDA MYLES AND YOKO MYLES
[2020-09-19 07:34] VITALS: BP 126/72
--- NOTE | 2020-09-19 07:36 | NUR ---
DISCHARGE INSTRUCTIONS REVIEWED, PT EDUCATED ON FOLLOW UP, VERBALIZED UNDERSTANDING. TAKEN BY WHEELCHAIR TO LOBBY TO WAIT FOR RIDE.
== END 2020-09-19 07:38 | disposition home or self-care (01) ==
LOC: ED 05:32
DX: I47.1 Supraventricular tachycardia (principal); R00.2 Palpitations; I10 Essential (primary) hypertension; E78.5 Hyperlipidemia, unspecified; I44.0 Atrioventricular block, first degree; R94.31 Abnormal electrocardiogram [ECG] [EKG]; Z86.73 Personal history of transient ischemic attack (TIA), and cerebral infarction without residual deficits
CPT/HCPCS: 36415; 71045; 80053; 81003; 83735; 84443; 84484; 85025; 87086; 93005; 99285